=== PATIENT | male | born 1995 | race Caucasian/White ===

== ENCOUNTER → 2020-01-17 | Outpatient (CLI) | payer OTHER ==
--- NOTE | 2020-01-17 16:55 | RAD ---
EXAM: Right foot 3 views. HISTORY: Right foot pain. COMPARISON: None. FINDINGS: Three views of the right foot are obtained. There is a nondisplaced fracture 13 mm from the base of the fifth metatarsal. Alignment is normal. Joint spaces are maintained. A 9 mm linear density projects along the soft tissues of the plantar/medial aspect of the first digit. IMPRESSION: 1. Nondisplaced fracture at the base of the fifth metatarsal. 2. 9 mm linear density along the medial/plantar aspect of the first digit. Correlate to exclude a foreign body. Electronically signed by: Juve Thurston MD (01/17/2020 4:52 PM) [facility]
== END ==
LOC: DXRAD 14:02 → EEVIPCON 14:02
DX: S92.354A Nondisplaced fracture of fifth metatarsal bone, right foot, initial encounter for closed fracture (principal); M85.871 Other specified disorders of bone density and structure, right ankle and foot; X58.XXXA Exposure to other specified factors, initial encounter; Y93.89 Activity, other specified; Y92.89 Other specified places as the place of occurrence of the external cause; Y99.8 Other external cause status
CPT/HCPCS: 73630